=== PATIENT | female | born 1935 | race Caucasian/White ===

== ENCOUNTER 2016-10-19 17:12 | Emergency (ER) | payer MEDICARE, BC ==
[~2016-10-19] VITALS: Ht 177.8 cm; Wt 91.8 kg
[~2016-10-19 17:12] MED LIST: ALDACTONE 25MG25 M1 PO; CENTRUM SILVER1 CTB PO; COUMADIN 5MG5 MG/TAB PO; LOPRESSOR 225 MG/TAB PO; LOPRESSOR 550 MG/TAB PO; NORCO 325 MG-7.1 TAB PO; SYNTHROID0.2 MG/TAB PO; VIT B-6100 MG PO; VITAMIN B125000 MCG SL
[2016-10-19 17:24] VITALS: TEMP 96.6
[2016-10-19] MEDS ORDERED: LOPRESSOR 550 MG/TAB PO (17:36)
[2016-10-19] MEDS ORDERED: COUMADIN 5MG5 MG/TAB PO ×2 (17:37→17:39)
[2016-10-19 18:03] LABS: BASO % 0.3 % (0.0-2.0); EOS % 0.1 % (0-4.0); GRAN # 12.3 (1.4-6.5); GRAN % 81.2 % (42.2-75.2); HEMATOCRIT 42.5 % (37.0-47.0); HEMOGLOBIN 13.2 g/dl (12.5-16.0); LYMPH # 1.1 (1.2-3.4); LYMPH % 7.5 % (20.0-51.0); MEAN CELL VOLUME 82 fl (80.0-100.0); MEAN CORPUSCULAR HEMOGLOBIN 25 pg (27.0-31.0); MEAN CORPUSCULAR HGB CONC 31 g/dl (33.0-37.0); MEAN PLATELET VOLUME 9.3 fl (7.4-10.4); MONO # 1.5 (0.1-0.6); PLATELET COUNT 283 K/mm3 (130-400); WHITE BLOOD COUNT 15.1 K/mm3 (4.8-10.8)
[2016-10-19 18:13] LABS: ADJUSTED CALCIUM 8.4 mg/dL (8.4-10.2); ALBUMIN 4.2 gm/dL (3.5-5.0); BILIRUBIN,TOTAL 1.1 mg/dL (0.0-1.0); CALCIUM 8.6 mg/dL (8.4-10.2); CREATININE, serum 0.97 mg/dL (0.52-1.25); POTASSIUM 3.9 mmol/L (3.4-5.0); TOTAL PROTEIN 7.2 gm/dL (6.4-8.2)
[2016-10-19 19:34] LABS: INR 1.4 (0.8-3.0); PROTHROMBIN TIME 15.9 SECONDS (9.7-12.8)
[2016-10-19 19:55] LABS: HYALINE CAST >12 /lpf; PH 5 (5-8); SQUAMOUS EPITHELIAL 0-2 /hpf; URINE APPEARANCE Cloudy; URINE BACTERIA Rare /hpf; URINE BILIRUBIN Negative (NEGATIVE); URINE BLOOD 2+ (NEGATIVE); URINE COLOR Yellow; URINE GLUCOSE Negative (NEGATIVE); URINE KETONE Trace (NEGATIVE); URINE UROBILINOGEN Negative (NEGATIVE)
[2016-10-19 19:56] LABS: URINE WBC >50 /hpf
[2016-10-19 20:20] VITALS: BP 156/88; PULSE 100
== END 2016-10-19 20:45 | disposition short-term general hospital (02) ==
LOC: COL.ER 17:12
PROVIDERS: Emergency Medicine
DX: I61.8 Other nontraumatic intracerebral hemorrhage (principal); G81.94 Hemiplegia, unspecified affecting left nondominant side; I10 Essential (primary) hypertension; I48.91 Unspecified atrial fibrillation; Z79.01 Long term (current) use of anticoagulants; I25.10 Atherosclerotic heart disease of native coronary artery without angina pectoris
CPT/HCPCS: J1953; J3430; J7030